=== PATIENT | male | born 1985 | race Asian ===

== ENCOUNTER 2024-09-08 10:59 | Emergency (ER) | payer MEDICAID, SELFPAY ==
[2024-09-08 11:03] VITALS: BP 144/86; PULSE 97; RESP 19; TEMP 36.7; O2SAT 98
--- NOTE | 2024-09-08 11:13 | EDNOTE_ITS ---
ED General RME/HPI General Chief complaint: Psychiatric Symptoms Stated complaint: CLEARANCE Time Seen by Provider: 09/08/24 11:11 Arrival date/time: 09/08/24 10:59 CC: 5150 Per PD patient was found walking in the streets against traffic. He officer states with patient has a known history with PD. Patient has a history of methamphetamine use family members are called states that he was seen hallucinating and walking into oncoming traffic. At the time of the exam the patient has no specific complaints and no pain, patient denies suicidal ideation or homicidal ideation. Related Data Previous Rx's ?Medication ?Instructions ?Recorded sulfamethoxazole 400 1 tab PO BID #20 tabs 05/07/23 mg-trimethoprim 80 mg tablet (Bactrim) Allergies Allergy/AdvReac Type Severity Reaction Status Date / Time No Known Allergies Allergy Verified 07/07/21 11:37 Review of Systems Review of Systems ROS Unobtainable: unobtainable due to mental status Past Medical History Past Medical History NEUROLOGIC: Negative Neurological Disorders CARDIAC: Negative Cardiac Disorders or Congestive Heart Failure RESPIRATORY: Negative Chronic Obstructive Pulmonary Disease (COPD) GASTROINTESTINAL: Negative Gastrointestinal Disorders GENITOURINARY: Negative Genitourinary Disorders or Renal Disease MUSCULOSKELETAL: Negative Musculoskeletal Disorders ENDOCRINE: Negative Endocrine Disorders, Diabetes Mellitus Type 1 or Diabetes Mellitus Type 2 HEMATOLOGIC: Negative Blood Disorders Family History FAMILY HISTORY: Negative Family Cardiac Disorders Surgical History SURGICAL: Negative Abdominal Surgery or Joint Replacement Social History SMOKING STATUS: Current every day smoker SUBSTANCE USE: crack/cocaine and methamphetamine ED Exam Narrative Physical exam: [General: Appears not in any acute distress Head normocephalic HEENT: Within acceptable limits Neck is supple nontender Chest equal chest rise nontender to palpation Respiratory: Clear to auscultation no wheezes crackles or rubs CV: Rate rhythm is regular no murmurs rubs or clicks Abdomen is soft nontender no masses positive bowel sounds all 4 quadrants Back: No CVA tenderness no spinous process tenderness from cervical spine thoracic and lumbar spine Skin: Intact no petechiae rash induration ulceration or crepitus Extremities: Moving all extremity against resistance cap refill less than 2 seconds neurosensory intact Neuro: Awake alert oriented x2, person and place, Glascow coma 15 no focal deficits] Course Course Course Narrative: Cleared for crisis Patient urinated on the floor is sleeping and on the floor picking at insulation on sink pipes. At this time the patient has not engaged with case management regarding suicidal evaluation. The patient will be held all night. At this point patient also has a potential to escalate to become a safety risk for staff members I am electing to give the patient Haldol Ativan and Benadryl. Quality Measures none Orders Category Date Time Status Diet Regular Diet 09/09/24 Lunch Active CBC Stat Lab 09/08/24 11:52 Completed CMP [Comprehensive Metabolic Panel] Stat Lab 09/08/24 11:52 Completed Drug Screen,Urine Stat Lab 09/08/24 12:30 Completed Urinalysis Stat Lab 09/08/24 12:30 Completed DiphenhydrAMINE INJ [Benadryl Inj] Med 09/08/24 17:33 Discontinued 50 mg IM X1 ONE Haloperidol Lactate [Haldol Inj] Med 09/08/24 17:33 Discontinued 5 mg IM X1 ONE LORazepam [Ativan Inj] Med 09/08/24 17:33 Discontinued 2 mg IM X1 ONE Late Tray Request Routine Oth 09/08/24 16:36 Active Vital Signs Vital signs: Vital Signs Temperature 98.1 F 09/08/24 11:03 Pulse Rate 97 09/08/24 11:03 Respiratory Rate 19 09/08/24 11:03 Blood Pressure 144/86 H 09/08/24 11:03 Pulse Oximetry (%) 98 09/08/24 11:03 Oxygen Delivery Method Room Air 09/08/24 11:03 [facility] Patient data External records reviewed:: [facility] previous records Clinical information provided by:: patient and law enforcement Social determinants that could affect healthcare access:: none Patient has the following chronic illnesses:: Methamphetamine abuse How is presenting disease/condition affected by chronic disease/condition?: e xacerbated by Evaluation data The following diagnostics were reviewed and interpreted by me:: lab results Lab and/or radiology exams considered but not ordered:: Urine is positive for methamphetamines CBC shows no acute leukocytosis anemia thrombocytopenia CMP shows no acute electrolyte imbalances renal impairment transaminitis or T. bili elevation. Interpretation Summary: Hallucinations Medications Medications considered but not ordered:: None Medication administrations:: Medication Administration History Discontinued Medications Diphenhydramine HCl (Diphenhydramine Inj 50 Mg/Ml Vial) 50 mg IM X1 ONE Stop: 09/08/24 17:34 Last Admin: 09/08/24 17:51 Dose: 50 mg Documented By: CS Haloperidol Lactate (Haloperidol Lact Inj 5 Mg/Ml Vial) 5 mg IM X1 ONE Stop: 09/08/24 17:34 Last Admin: 09/08/24 17:51 Dose: 5 mg Documented By: CS Lorazepam (Lorazepam 2 Mg/Ml Vial) 2 mg IM X1 ONE Stop: 09/08/24 17:34 Last Admin: 09/08/24 17:51 Dose: 2 mg Documented By: CS None Consultations Consultation(s) initiated? (list below): Yes Diagnosis Differential Diagnosis ED Complaint MDM: Suicidal ideation schizophrenia hallucinations substance abuse Most likely diagnosis given after review of the tests above:: Substance abuse hallucinations schizophrenia Admission Indicated Admission indicated?: indicated Explain why admission is indicated or not indicated:: Transfer Admission Request Was there a request for admission?: No Disposition Plan Disposition Plan: Transfer Medical Decision Making Differential Diagnosis Differential Diagnosis: Suicidal ideation schizophrenia hallucinations substance abuse Lab Data 09/08/24 11:52 09/08/24 11:52 Labs: Lab Results 09/08/24 09/08/24 Range/Units 11:52 12:30 WBC 5.9 (3.8-10.6) Thou/mm3 RBC 4.88 (4.50-5.90) Miln/mm3 Hgb 12.3 L (13.5-16.0) g/dL Hct 37.8 L (41.0-53.0) % MCV 78 L (80-100) fL MCH 25.2 (25.0-35.0) pg MCHC 32.5 (31.0-37.0) g/dl RDW Std Deviation 39.0 (35.1-43.9) fL Plt Count 238 (140-440) Thou/mm3 Neut % (Auto) 60 (37-80) % Lymph % (Auto) 21 (10-50) % [place] % (Auto) 12 (0-12) % Eos % (Auto) 7 (0-10) % Baso % (Auto) 1 (0-2.5) % Neut # (Auto) 3.5 (1.8-7.7) Thou/mm3 Lymph # (Auto) 1.2 (1.0-4.8) Thou/mm3 [place]kin # (Auto) 0.7 (0.0-0.8) Thou/mm3 Eos # (Auto) 0.4 (0.0-0.5) Thou/mm3 Baso # (Auto) 0.0 (0.0-0.2) Thou/mm3 Immature Gran # (Auto) 0.01 H (0.00-0.00) Thou/mm3 Absolute Nucleated RBC 0.00 (0.00-0.00) Thou/mm3 Immature Gran % 0 (0-0) % Nucleated RBC % 0 (0) /100 WBC Sodium 139 (136-145) mMol/L Potassium 3.6 (3.4-5.1) mMol/L Chloride 103 (98-107) mMol/L Carbon Dioxide 25.3 (20.0-31.0) mMol/L Anion Gap 11 (7-16) BUN 15 (9-23) mg/dL Creatinine 0.8 (0.6-1.3) mg/dL Estim Creat Clear Calc Not Performed. eGFR > 60 (60 - ) See Note BUN/Creatinine Ratio 19 (12-20) Ratio Glucose 93 (74-106) mg/dL Calculated Osmolality 278 (275-295) Calcium 9.3 (8.3-10.6) mg/dL Corrected Calcium 9.3 (8.5-10.1) mg/dL Total Bilirubin 0.6 (0.3-1.2) mg/dL AST 84 H (0-34) U/L ALT 93 H (10-49) U/L Alkaline Phosphatase 70 (46-116) U/L Total Protein 7.8 (5.7-8.2) gm/dL Albumin 5.0 (3.5-5.0) gm/dL Globulin 2.8 (2.3-3.5) gm/dL Albumin/Globulin Ratio 1.8 (1.2-2.2) Ur Collection Type Clean Catch Urine Color Yellow (Lt Yel-Yel) Urine Clarity Clear (Clear/Hazy) Urine pH 6.5 (5.0-7.0) Ur Specific [place] 1.028 (1.001-1.035) Urine Protein Trace (Neg - Trace) Urine Glucose (UA) Negative (Negative) Urine Ketones 2+ A (Negative) Urine Blood Trace (Negative) Urine Nitrite Negative (Negative) Urine Bilirubin Negative (Negative) Urine Urobilinogen (Auto) 2.0 (0.0-1.0) mg/dL Ur Leukocyte Esterase Negative (Negative) Urine RBC 4 H (0-3) /hpf Urine WBC 1 (0-5) /hpf Ur Squamous Epith Cells 0 (0-5) /hpf Urine Bacteria None (None) Urine Opiates Screen Negative (Negative) Urine Fentanyl Screen Negative (Negative) Ur Barbiturates Screen Negative (Negative) U Amphetamin/Meth Scrn Positive A (Negative) U Benzodiazepines Scrn Negative (Negative) U Cocaine Metab Screen Negative (Negative) U Marijuana (THC) Screen Negative (Negative) Discharge Plan Plan Patient Disposition: [facility] Prescriptions/Referrals Prescriptions/Med Rec: No Action sulfamethoxazole-trimethoprim [Bactrim] 400-80 mg tablet 1 tab PO BID Qty: 20 0RF Referrals: No Primary/Family,Physician [Primary Care Provider] - In 1 week Problem List Clinical Impression: Chronic schizophrenia, Drug-induced psychotic disorder Patient/Caregiver Discharge Instructions Print Language: Algerian Stand Alone Forms: Soraida Award Info., Patient Portal Info Letter PA/REM[place] Supervising Physician PA/CHANNEL DIRECTOR Supervising Physician: Shantanu Cai ENP
--- NOTE | 2024-09-08 11:22 | PC.CC ---
Pt Xavi Meyers is a 39 yr old male to ED on 5150 hold placed by [employer] for GD. From hold, law enforcement dispatched to pts residence for pt presenting with strange behavior. Pt walking into traffic, and being unaware of his surroundings. Pt was also breaking things in the home. At this time pt is pending medical clearance for evaluation.
[2024-09-08 12:23] LABS: Alanine Aminotransferase 93 U/L (10-49); Albumin/Globulin Ratio 1.8 (1.2-2.2); Alkaline Phosphatase 70 U/L (46-116); Anion Gap 11 (7-16); Aspartate Amino Transferase 84 U/L (0-34); BUN/Creatinine Ratio 19 Ratio (12-20); Bilirubin,Total 0.6 mg/dL (0.3-1.2); Blood Urea Nitrogen 15 mg/dL (9-23); Calcium 9.3 mg/dL (8.3-10.6); Calcium (Corrected) 9.3 mg/dL (8.5-10.1); Carbon Dioxide 25.3 mMol/L (20.0-31.0); Chloride 103 mMol/L (98-107); Creatinine (Component) 0.8 mg/dL (0.6-1.3); Globulin 2.8 gm/dL (2.3-3.5); Glucose 93 mg/dL (74-106); Osmolality,Calculated 278 (275-295); Potassium 3.6 mMol/L (3.4-5.1); Sodium 139 mMol/L (136-145); Total Protein 7.8 gm/dL (5.7-8.2); eGFR > 60 See Note
[2024-09-08 12:24] LABS: Basophils % (Auto) 1 % (0-2.5); Eosinophils # (Auto) 0.4 Thou/mm3 (0.0-0.5); Eosinophils % (Auto) 7 % (0-10); Hematocrit 37.8 % (41.0-53.0); Hemoglobin 12.3 g/dL (13.5-16.0); Immature Granulocytes % (Auto) 0 % (0-0); Immature Granulocytes Auto 0.01 Thou/mm3 (0.00-0.00); Lymphocytes # (Auto) 1.2 Thou/mm3 (1.0-4.8); Lymphocytes % (Auto) 21 % (10-50); Mean Corpuscular HGB Conc 32.5 g/dl (31.0-37.0); Mean Corpuscular Hemoglobin 25.2 pg (25.0-35.0); Mean Corpuscular Volume 78 fL (80-100); Monocytes # (Auto) 0.7 Thou/mm3 (0.0-0.8); Monocytes % (Auto) 12 % (0-12); Neutrophils # (Auto) 3.5 Thou/mm3 (1.8-7.7); Neutrophils % (Auto) 60 % (37-80); Nucleated Red Blood Cell % 0 /100 WBC (0); Platelet Count 238 Thou/mm3 (140-440); Red Blood Count 4.88 Miln/mm3 (4.50-5.90); White Blood Count 5.9 Thou/mm3 (3.8-10.6)
[2024-09-08 13:11] LABS: Collection Type, Urine Clean Catch; Squamous Epithelial Cell,Urine 0 /hpf (0-5)
--- NOTE | 2024-09-08 13:30 | PC.NURSE ---
Pt continues to remain restless. Remains by the door despite being asked multiple time to step away and/or go to the gurney. Pt periodically taking blanket to the wall as if he is using it to measure something. Pt had to be redirected and asked to leave the clock on the wall alone as he was seemingly attempting to remove it. Pt eventually stops after several verbal commands. Will continue to have a 1:1 sitter
[2024-09-08 13:36] LABS: Amphetamine/Methamp Scrn,U Positive (Negative); Barbiturate Screen,Urine Negative (Negative); Benzodiazepines Screen,Urine Negative (Negative); Benzoylecgonine Screen, Ur Negative (Negative); Fentanyl Screen,Urine Negative (Negative); Opiate Screen,Urine Negative (Negative); THC Screen,Urine Negative (Negative)
[2024-09-08 13:38] LABS: Bilirubin,Urine Negative (Negative); Blood,Urine Trace (Negative); Clarity,Urine Clear (Clear/Hazy); Color,Urine Yellow (Lt Yel-Yel); Glucose, Urine Negative (Negative); Ketones,Urine 2+ (Negative); Leukocyte Esterase,Urine Negative (Negative); Nitrite,Urine Negative (Negative); PH,Urine 6.5 (5.0-7.0); Protein,Urine Trace (Neg - Trace); RBC,Urine 4 /hpf (0-3); Specific Gravity,Urine 1.028 (1.001-1.035); WBC,Urine 1 /hpf (0-5)
--- NOTE | 2024-09-08 15:30 | PC.NURSE ---
Patient acting aggressively, forcing door open, rolling around on the floor in er room 18, pulling on sink pipe, security called to bedside.
[2024-09-08 16:04] VITALS: BP 151/82; PULSE 94; RESP 18; TEMP 36.6; O2SAT 99
--- NOTE | 2024-09-08 17:06 | PC.CC ---
Pt Xavi Meyers is a 39 yr old male to ED on 5150 hold placed by [employer] for GD. From hold local law enforcement called to pts residence by family due to pts bizarre behavior. From hold pt was breaking items in the home and running into oncoming traffic. Pts [place] screening is low risk with pt denying SI at this time. Pts toxicology positive for methamphetamine. From review of pts historical visits, pt placed on 5150 hold on 01/26/2020, with [facility] safety planning for pt to return home. While pt was pending medical clearance, pt noted to be actively engaging with stimuli, talking to himself. Pt sitting on floor, licking pudding out of cup. ASW met with pt at bedside, introducing self and role in pt care. ASW explained reason for encounter. At time of encounter pt is noted to be standing in corner of the room draped in blanket. Pt appears to be responding to stimuli, as evident that pt was speaking to himself. Pt provides minimal responses as to reason for coming to ED. Pt speaks in clear blunted tone. Pt fails to make eye contact with ASW for duration of encounter. Pt noted to be unkempt and malodorous. Pt telling ASW that he lives with his mom and that he has not slept in a few days. Pt asking ASW if ASW is a, ?jena doctor.? ASW attempted to assess for current SI/HI, A/VH. ASW attempted to assess for hx of MH, current dx. ASW attempted to assess if pt is prescribed MH medications and for compliance. ASW attempted to assess if pt is engaged in traditional MH services, and if pt has ever been hospitalized for MH reasons. Pt would not respond to any of these assessment questions. ASW attempted to assess pt regarding his substance use issues, again pt would not engage. ASW reviewed pts historical encounters to locate any contact information for pts family. 1418-ASW attempted to contact number for pt on his face sheet [phone], which is a non-working number. 1422-ASW spoke with [employer] Dispatcher Ambrosio, request to speak with Officer Álvaro for collateral information and contact information for family. ASW informed that [employer] is unable to provide contact information, but states that will reach out to pts mother to ask her to contact ASW. ASW provided direct contact information for call back. 1616-Case consult with EQUIPMENT SUPERINTENDENT Jennifer Sue, plan to re-evaluate in AM with attempt to collect collateral information (MH hx/dx etc). ED provider Cai and bedside RN Gayle updated on plan.
--- NOTE | 2024-09-08 17:35 | PC.NURSE ---
patient tied his underwear around his head, peeing on floor, rolling around in his urine, not able to re direct patient, uncooperative, called security to bedside and Shantanu INMAN made aware,
[2024-09-08] MEDS: DiphenhydrAMINE INJ 50 MG/ML VIAL IM (17:51)
[2024-09-08] MEDS: HALOPERIDOL LACT INJ 5 MG/ML VIAL IM (17:51)
[2024-09-08] MEDS: LORazepam 2 MG/ML VIAL IM (17:51)
--- NOTE | 2024-09-08 20:30 | PC.NURSE ---
IN TO ASSESS PT AT THIS TIME. PT ASLEEP ON GURNEY IN NO ACUTE DISTRESS. PT ELLIOTT HAVING AUDITORY OR VISUAL HALLUCINATIONS. PT DENIES SI/HI AT THIS TIME. SITTER IN PLACE.
--- NOTE | 2024-09-08 23:04 | EDNOTE_ITS ---
Emergency Room Addendum Addendum Narrative: 2300: Care assumed from Shantanu Cai NP. Past medical, surgical, social and family history reviewed. Vitals and home medications reviewed. Results and treatment plan discussed. I will assume the care of the patient at this time and will follow the patient, pending crisis evaluation. Please refer to the emergency department record for history and examination from initial visit. Patient was placed in observation for treatment and monitoring of psychiatric symptoms, at 2300 09/08/2024. Symptoms consist of suicidal ideation and depression. Treatment plan includes psychiatric consult, reassessments, and possible placement into psychiatric facility. The patient had access and provided personal hygiene, shower, food, water, and daily medications. 0600: Care signed out to Dr. Meneses (emergency physician). Past medical, surgical, social and family history reviewed. Vitals and home medications reviewed. Results and treatment plan discussed. They will assume the care of the patient at this time and will follow the patient, pending crisis evaluation. At this t pascual, observation has ended.
[2024-09-09 00:17] VITALS: BP 158/97; PULSE 95; RESP 19; O2SAT 97
[2024-09-09 06:32] VITALS: BP 151/98; PULSE 81; RESP 17; TEMP 36.8; O2SAT 98
--- NOTE | 2024-09-09 07:15 | PC.NURSE ---
Assume care for this Pt and got report from Joycelyn SALGADO. Pt is calm at this time, resting, easily arousable. 1 on 1 sitter in placed
--- NOTE | 2024-09-09 07:31 | PC.CC ---
Pt Xavi Meyers is a 39 yr old male to ED on 5150 hold placed by [employer] for GD. From hold law enforcement responded to community call by pts family due to bizarre behavior. From hold when [employer] responded pt was breaking things in the home, and was walking in and out of oncoming traffic. Pt has been medically cleared, and ASW attempted to assess, with pt unwilling/unable to engage. ASW contacted [employer] for collateral information and support in contacting pts family. ASW informed that [employer] would make contact with pts mom and have her call ED. ASW noted a missed call from pts mom Shazia Meyers [phone] at end of shift. ASW attempted to follow up and was unable to make contact. Plan for today is for ASW to attempt to reassess pt, and collect collateral information from pts family.
--- NOTE | 2024-09-09 08:08 | PD.EDADDENDU ---
Emergency Room Addendum Addendum Narrative: 0600: Care assumed by previous shift provider. Past medical, surgical, social and family history reviewed. Vitals and home medications reviewed. Results and treatment plan discussed. I will assume the care of the patient at this time and will follow the patient, pending final disposition. Patient had no behavioral issues during my encounter. 10:30 patient accepted to [facility] by Dr. Robin. Patient was transported in stable condition.
[2024-09-09 08:23] VITALS: BP 157/100; PULSE 67; RESP 17; TEMP 36.4; O2SAT 100
[2024-09-09 10:33] VITALS: BMI 24.2
--- NOTE | 2024-09-09 10:33 | PC.NURSE ---
Got a call from Yemi crowe and spoke to Barb whom i gave report too, Per Barb she report that she will call back if accepted
--- NOTE | 2024-09-09 10:41 | PC.NURSE ---
Got a call from [facility] who reported that they accepted this Pt and Dr. Santos is the accepting doctor.
[2024-09-09 11:01] VITALS: BP 166/75; PULSE 70; RESP 17; TEMP 36.9; O2SAT 99
--- NOTE | 2024-09-09 11:29 | PC.NURSE ---
Called Jean BANKS and I spoke to Freya RN who reports that she already got report from another nurse.
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
--- NOTE | 2024-09-09 12:36 | PC.CC ---
09-ASW made contact with [facility], pt has no open record for services. 937-Call to Pts sister Shazia. ASW provided update that pt will remain on 5150 hold, and is now pending placement in LPS facility. Clinical packet uploaded and faxed to the following [facility] facilities: [facility] 1050- Call to [facility], ASW spoke with Freya, pt accepted by Dr. Santos. Pt to go to 116A. Request transport ETA. Clinical packet created. PCS and face sheet uploaded to [employer]. 1100-Call to [facility], transport ETA for 1310. 1104-ASW followed up with [facility], with transport ETA. 1140-Call to pts sister with accepting information. ASW provided contact information for LPS facility.
== END 2024-09-09 11:26 ==
PROVIDERS: Registered Nurse General Practice; Emergency Provider Emergency Medicine
DX: Z04.6 Encounter for general psychiatric examination, requested by authority (principal); F15.159 Other stimulant abuse with stimulant-induced psychotic disorder, unspecified; F20.9 Schizophrenia, unspecified
CPT/HCPCS: 36415; 80053; 80307; 81001; 85025; 96127; 96372; 99285; J1200; J1630; J2060

== ENCOUNTER 2024-10-14 16:16 | Emergency (ER) | payer MEDICAID, SELFPAY ==
[2024-10-14 16:26] VITALS: BP 146/92; PULSE 105; RESP 18; TEMP 37.2; O2SAT 97
--- NOTE | 2024-10-14 16:28 | PD.EDWOUND ---
ED Wound/Laceration-RME/HPI General Stated Complaint: MEDICAL CLEARANCE Time Seen by Provider: 10/14/24 16:21 Arrival date/time: 10/14/24 16:16 39-year-old male presents to the emergency department for medical clearance for gross ration patient is laceration of the right elbow Limitations: no limitations Related Data Previous Rx's ?Medication ?Instructions ?Recorded sulfamethoxazole 400 1 tab PO BID #20 tabs 05/07/23 mg-trimethoprim 80 mg tablet (Bactrim) cephalexin 500 mg capsule 500 mg PO BID 7 days #14 caps 10/14/24 Allergies Allergy/AdvReac Type Severity Reaction Status Date / Time No Known Allergies Allergy Verified 07/07/21 11:37 Review of Systems Review of Systems Systems Reviewed: All systems reviewed, normal except as documented Constitutional Constitutional: Reports system reviewed and no additional complaints, except as documented, Denies fever(s) and Denies headache(s) Eyes Eyes: Reports system reviewed and no additional complaints, except as documented and Denies blurry vision ENT Ears, Nose, Mouth, and Throat: Reports system reviewed and no additional complaints, except as documented, Denies headache(s), Denies nasal congestion and Denies nasal discharge Cardiovascular Cardiovascular: Reports system reviewed and no additional complaints, except as documented, Denies chest pain and Denies dyspnea Respiratory Respiratory: Reports system reviewed and no additional complaints, except as documented, Denies chest congestion, Denies cough and Denies dyspnea Gastrointestinal Gastrointestinal: Reports system reviewed and no additional complaints, except as documented and Denies abdominal pain Integumentary/Breasts Skin/Breast: Reports system reviewed and no additional complaints, except as documented, Denies rash and Reports wounds (Laceration right elbow) Neurologic Neurologic: Reports system reviewed and no additional complaints, except as documented, Reports as per HPI and Denies headache(s) Past Medical History Past Medical History NEUROLOGIC: Negative Neurological Disorders CARDIAC: Negative Cardiac Disorders or Congestive Heart Failure RESPIRATORY: Negative Chronic Obstructive Pulmonary Disease (COPD) GASTROINTESTINAL: Negative Gastrointestinal Disorders GENITOURINARY: Negative Genitourinary Disorders or Renal Disease MUSCULOSKELETAL: Negative Musculoskeletal Disorders ENDOCRINE: Negative Endocrine Disorders, Diabetes Mellitus Type 1 or Diabetes Mellitus Type 2 HEMATOLOGIC: Negative Blood Disorders Family History FAMILY HISTORY: Negative Family Cardiac Disorders Surgical History SURGICAL: Negative Abdominal Surgery or Joint Replacement Social History SMOKING STATUS: Never smoker SUBSTANCE USE: crack/cocaine and methamphetamine ED Exam General Limitations: Present no limitations General appearance: Present alert and in no apparent distress Head Head exam: Present atraumatic, normocephalic and normal inspection Eye Eye exam: Present normal appearance, PERRL and EOMI; Absent conjunctival injection ENT ENT exam: Present normal exam, normal oropharynx and mucous membranes moist Neck Neck exam: Present normal inspection, full ROM and trachea midline Chest Chest inspection: Present normal inspection and symmetric chest wall rise Respiratory Respiratory exam: Present normal lung sounds bilaterally Cardiovascular Cardiovascular exam: Present regular rate, normal rhythm and normal heart sounds Abdominal Exam Abdominal exam: Present soft and normal bowel sounds Extremities Exam Extremities exam: Present normal inspection and full ROM Back Exam Back exam: Present normal inspection and full ROM Neurological Exam Neurological exam: Present alert, oriented X3 and CN II-XII intact Psychiatric Psychiatric exam: Present normal affect and normal mood Skin Skin exam: Present warm, dry and other (Laceration right elbow) Course Quality Measures none Orders Category Date Time Status Set Up Suture Tray STAT Care 10/14/24 16:28 Active Wound Care NOW Care 10/14/24 16:28 Active Lidocaine 1% 20 ml [Xylocaine 1% 20 ML] Med 10/14/24 16:28 Discontinued 20 ml INFL X1 ONE Tet,Diphth,Pertuss(Acell)-Tdap [Boostrix Vacc] Med 10/14/24 16:28 Discontinued 0.5 ml IMI .ONCE ONE Vital Signs Vital signs: Vital Signs Temperature 98.9 F 10/14/24 16:26 Pulse Rate 105 H 10/14/24 16:26 Respiratory Rate 18 10/14/24 16:26 Blood Pressure 146/92 H 10/14/24 16:26 Pulse Oximetry (%) 97 10/14/24 16:26 Oxygen Delivery Method Room Air 10/14/24 16:26 O2 saturation 97% room air within normal limits Procedures -ED Laceration Laceration 1: Site: upper extremity Side (If applicable): right Size (cm): 3 Description: linear Depth: simple, single layer Amount of anesthesia used (mL): 0 Pre-repair: irrigated extensively Skin layer closed with: nylon Size (cm): 3-0 Number of sutures: 2 Technique: simple, interrupted Wound / Laceration MDM Narrative MDM Narrative:: 39-year-old male presents to the emergency department for medical clearance for gross ration patient is laceration of the right elbow On exam patient has 2 cm laceration right elbow Wound irrigated copiously laceration repaired with 2 sutures Patient discharged to intermediate Antibiotic sent to the pharmacy Patient data External records reviewed:: [facility] previous records Clinical information provided by:: patient Social determinants that could affect healthcare access:: mental health Patient has the following chronic illnesses:: Mental health How is presenting disease/condition affected by chronic disease/condition?: no chronic disease Evaluation data The following diagnostics were reviewed and interpreted by me:: other (specify) (N/A) Lab and/or radiology exams considered but not ordered:: Consider not ordered Interpretation Summary: N/A Medications / Prescriptions Medications or Prescriptions considered but not ordered:: Given Medication administrations:: Medication Administration History Discontinued Medications Diphtheria/Tetanus/Acell Pertussis (Diphth,Pertuss(Acell),Tet Vac 0.5 Ml Vial) 0.5 ml IMi .ONCE ONE Stop: 10/14/24 16:29 Lidocaine HCl (Lidocaine Hcl 1% 20 Ml Vial) 20 ml INFL X1 ONE Stop: 10/14/24 16:29 Given Consultations Consultation(s) initiated? (list below): No Diagnosis Wound Differential Diagnosis: laceration, abrasion and avulsion of skin Most likely diagnosis given after review of the tests above:: Laceration medical clearance for incarceration Admission Indicated Admission indicated?: not indicated Admission Request Was there a request for admission?: No Disposition Plan Disposition Plan: Discharge Discharge Attestation Discharge Attestation: The patient and all family members were given an opportunity to ask questions and understood the discharge instructions. Discharge instructions specifically effects, indications for sooner follow up or return to the emergency department, and the expected course of current diagnosis. Patient condition: Stable Discharge Plan Plan Patient Disposition: Skilled Nursing/Court/Law Disposition Comment: Stable Prescriptions/Referrals Prescriptions/Med Rec: New cephalexin 500 mg capsule 500 mg PO BID 7 Days Qty: 14 0RF No Action sulfamethoxazole-trimethoprim [Bactrim] 400-80 mg tablet 1 tab PO BID Qty: 20 0RF Problem List Clinical Impression: Laceration of elbow, right, Medical clearance for incarceration Patient/Caregiver Discharge Instructions Education Materials: ED Scar Tips to Minimize Additional Instructions: Please follow up with your primary care doctor in the next 24-48hrs for any worsening symptoms return here immediately Please have sutures removed in 10 days Print Language: Turkish Stand Alone Forms: Soraida Award Info., Patient Portal Info Letter PA/SOCIAL SCIENCES RESEARCH SCIENTIST Supervising Physician PA/SOCIAL SCIENCES RESEARCH SCIENTIST Supervising Physician: Dr Meneses
== END 2024-10-14 16:55 ==
PROVIDERS: Emergency Provider Emergency Medicine
DX: Z02.89 Encounter for other administrative examinations (principal); S51.011A Laceration without foreign body of right elbow, initial encounter; X58.XXXA Exposure to other specified factors, initial encounter
CPT/HCPCS: 12001; 99283

== ENCOUNTER 2025-01-29 20:11 | Emergency (ER) | payer MEDICAID, SELFPAY ==
[2025-01-29 20:15] VITALS: BP 145/91; PULSE 95; RESP 18; TEMP 36.8; O2SAT 97
[2025-01-29 20:17] VITALS: BMI 21.5
--- NOTE | 2025-01-29 20:39 | PD.EDMEDCL ---
ED Medical Clearance RME/HPI General Chief complaint: Medical Clearance Stated complaint: MEDICAL CLEARANCE Source: patient Arrival date/time: 01/29/25 20:11 Mode of arrival: other (Police) RME / HPI RME / HPI Narrative: The patient does not want any treatment. At this time he does not want history and physical exam. DR. CARD?S MAIN ED EVALUATION: 39-year-old male with history of schizophrenia presenting to the emergency department via [facility] who is requesting medical clearance for incarceration. Patient denies any medical complaints and refuses and physical exam and medical history. - PMH: Schizophrenia - PSH: Denies - Social history:Crack/Cocaine, Methamphetamine - Current medications: Reviewed PCP is Unknown MD complaint: medical clearance requested Treatments Prior to Arrival: none Related Information Previous Rx's ?Medication ?Instructions ?Recorded sulfamethoxazole 400 1 tab PO BID #20 tabs 05/07/23 mg-trimethoprim 80 mg tablet (Bactrim) Allergies Allergy/AdvReac Type Severity Reaction Status Date / Time No Known Allergies Allergy Verified 01/29/25 20:43 Review of Systems Review of Systems ROS Unobtainable: other (Patient refused) Past Medical History Past Medical History PSYCHO/SOCIAL: Positive Schizophrenia and Recreational Drug Use (Crack/Cocaine, Methamphetamine) Social History SUBSTANCE USE: crack/cocaine and methamphetamine Course Quality Measures none Vital Signs Vital signs: Vital Signs Temperature 98.3 F 01/29/25 20:15 Pulse Rate 95 01/29/25 20:15 Respiratory Rate 18 01/29/25 20:15 Blood Pressure 145/91 H 01/29/25 20:15 Pulse Oximetry (%) 97 01/29/25 20:15 Oxygen Delivery Method Room Air 01/29/25 20:15 Medical Clearance MDM Narrative MDM Narrative:: Scribe Attestation: 01/29/2025 Elysia Parr am scribing for and in the presence of Dr. Card. Provider Notation: Although this document has been carefully reviewed, there may still be some phonetic and other typographical errors.? These errors are purely grammatical due to imperfections in the software program and should not be construed in any way to compromise the substance of the patient's medical care during this visit. 39-year-old male with history of schizophrenia presenting to the emergency department via [facility] who is requesting medical clearance for incarceration. Patient denies any medical complaints and refuses and physical exam and medical history. The patient does not want any history of physical exam findings. Patient is medically cleared and will be discharged to [facility] for incarceration. Patient data External records reviewed:: [facility] previous records (Reviewed prior ED records from 10/14/24. Patient was last seen for Laceration of elbow, right.) and Other (specify) ([facility]) Clinical information provided by:: patient, EMS and law enforcement ([facility]) Social determinants that could affect healthcare access:: none (History of fpc) Patient has the following chronic illnesses:: Schizophrenia, Substance abuse How is presenting disease/condition affected by chronic disease/condition?: uneffected by Evaluation data The following diagnostics were reviewed and interpreted by me:: other (specify) (N/A) Lab and/or radiology exams considered but not ordered:: N/A Interpretation Summary: N/A Medications / Prescriptions Medications or Prescriptions considered but not ordered:: N/A Medication administrations:: N/A Consultations Consultation(s) initiated? (list below): No Consultation #1 (Physician, Specialty, Details): N/A Diagnosis Medical Clearance Differential Diagnosis: other (N/A) Most likely diagnosis given after review of the tests above:: Medical Clearance for Incarceration Admission Indicated Admission indicated?: not indicated (Patient is going to [facility] medically cleared) Explain why admission is indicated or not indicated:: Patient is going to [facility] medically cleared Admission Request Was there a request for admission?: No Disposition Plan Disposition Plan: other (specify) (Medical clearance for [facility]. Patient refuses all treatment) Discharge Plan Plan Patient Disposition: Longterm/Court/Law Patient condition on transfer: Stable Prescriptions/Referrals Prescriptions/Med Rec: No Action sulfamethoxazole-trimethoprim [Bactrim] 400-80 mg tablet 1 tab PO BID Qty: 20 0RF Referrals: No Primary/Family,Physician [Primary Care Provider] - In 1 week Problem List Clinical Impression: Medical clearance for incarceration Patient/Caregiver Discharge Instructions Additional Instructions: Patient is medically cleared for incarceration. At this time he does not want any treatment. Please return to the emergency department if you have any questions, concerns, you want any treatment, or any other concerns. DISCHARGE INSTRUCTIONS Even though you have been discharged from the Emergency Department, there are several things that you should do to ensure that you receive proper care: 1. DO READ your discharge instructions as these contain important information concerning your medical care. 2. If medication has been prescribed for your condition, fill the prescription as soon as possible and follow the directions on the medication. 3. RETURN AT ONCE TO THE EMERGENCY DEPARTMENT if you have any problems or concerns. These include but are not limited to fever, worsening pain(belly, chest, head, etc?), worsening shortness of breath, uncontrollable bleeding, inability to tolerate food and water, or any condition that makes you question your well-being. Also, if your symptoms do not improve in the next 12-24 hours, return to the ER or seek medical care immediately. 4. Be sure to follow up with your regular physician or specialist as instructed at discharge as this is the best way to ensure that you receive the very best of care. If you do not have a primary care physician, please contact a physician group and make an appointment. 5. Please visit [employer] for coupons regarding your prescriptions. It is a free service for you to use and can help reduce the cost of your medication. We would like to thank you for coming today and our hope is that we served you and your family well during your stay Print Language: Sudanese
== END 2025-01-29 20:48 ==
PROVIDERS: Emergency Provider Emergency Medicine
DX: Z02.89 Encounter for other administrative examinations (principal); F20.9 Schizophrenia, unspecified
CPT/HCPCS: 99281

== ENCOUNTER 2025-08-25 04:41 | Emergency (ER) | payer SELFPAY ==
[2025-08-25] VITALS (8 sets, daily range): BP systolic 131–157; BP diastolic 67–101; PULSE 71–97; RESP 16–22; TEMP 36.4–37.1; O2SAT 96–100; BMI 22.6
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
[2025-08-25] MEDS: DIPHTH,PERTUSS(ACELL),TET VAC 0.5 ML SYR- ADULT IMi (05:53)
[2025-08-25 06:13] LABS: Basophils # (Auto) 0.0 Thou/mm3 (0.0-0.2); Basophils % (Auto) 0 % (0-2.5); Eosinophils # (Auto) 0.2 Thou/mm3 (0.0-0.5); Eosinophils % (Auto) 3 % (0-10); Hematocrit 40.0 % (41.0-53.0); Hemoglobin 12.7 g/dL (13.5-16.0); Immature Granulocytes Auto 0.01 Thou/mm3 (0.00-0.00); Lymphocytes # (Auto) 0.7 Thou/mm3 (1.0-4.8); Lymphocytes % (Auto) 13 % (10-50); Mean Corpuscular HGB Conc 31.8 g/dl (31.0-37.0); Mean Corpuscular Hemoglobin 25.2 pg (25.0-35.0); Mean Corpuscular Volume 80 fL (80-100); Monocytes # (Auto) 0.8 Thou/mm3 (0.0-0.8); Monocytes % (Auto) 15 % (0-12); Neutrophils # (Auto) 3.9 Thou/mm3 (1.8-7.7); Neutrophils % (Auto) 68 % (37-80); Nucleated Red Blood Cell # 0.00 Thou/mm3 (0.00-0.00); Nucleated Red Blood Cell % 0 /100 WBC (0); Platelet Count 266 Thou/mm3 (140-440); RDW Standard Deviation 40.5 fL (35.1-43.9); Red Blood Count 5.03 Miln/mm3 (4.50-5.90); White Blood Count 5.7 Thou/mm3 (3.8-10.6)
[2025-08-25 06:29] LABS: INR 1.0 (0.9-1.3); Prothrombin Time 10.9 Seconds (9.0-12.2)
[2025-08-25 07:18] LABS: Alanine Aminotransferase 46 U/L (10-49); Albumin, Serum 4.3 gm/dL (3.5-5.0); Albumin/Globulin Ratio 1.6 (1.2-2.2); Alcohol, Blood Medical < 3.0 mg/dL (0-10.0); Alkaline Phosphatase 69 U/L (46-116); Anion Gap 12 (7-16); Aspartate Amino Transferase 45 U/L (0-34); BUN/Creatinine Ratio 21 Ratio (12-20); Bilirubin,Total 0.5 mg/dL (0.3-1.2); Blood Urea Nitrogen 19 mg/dL (9-23); Calcium 8.7 mg/dL (8.3-10.6); Calcium (Corrected) 8.7 mg/dL (8.5-10.1); Carbon Dioxide 26.1 mMol/L (20.0-31.0); Chloride 104 mMol/L (98-107); Creatinine (Component) 0.9 mg/dL (0.6-1.3); Estimated Creatinine Clearance 103.5 mL/min (>60); Globulin 2.7 gm/dL (2.3-3.5); Glucose 147 mg/dL (74-106); Osmolality,Calculated 288 (275-295); Potassium 3.9 mMol/L (3.4-5.1); Sodium 142 mMol/L (136-145); Total Protein 7.0 gm/dL (5.7-8.2); eGFR > 60 See Note
--- NOTE | 2025-08-25 07:23 | EDNOTE_ITS ---
Emergency Room Addendum Addendum Narrative: 0600: Care assumed from Dr. Angelo, the previous shift emergency physician. Past medical, surgical, social and family history reviewed. Vitals and home medications reviewed. I will assume the care of the patient at this time, pending xray's, CTs, and medical clearance for mental health evaluation. Please refer to the emergency department record for history and examination from initial visit.?The following addendum documentation note is intended to reflect any pending information, findings, or radiology results not included in the patient?s initial chart. 0725a: Patient is becoming agitated though somewhat redirectable. At this time patient is refusing Xrays and CTs. Patient has agreed to CTs though still refusing XR. 1030a: Patient is refusing XR of the foot though at this time is considered medically cleared. 1110a: Notified by our social sciences research scientist the patient has been placed on a 5150 hold and at this time pending LPS facility placement. 1645p: Notified by RN that the LPS facility that is willing to accept the patient is requesting XR of left leg prior to acceptance. Imaging has been ordered and patient is agreeable to having the images performed. The left tibia/fibula xray is negative for fractures. The left knee xray is negative for fractures. The left foot xray is positive for second and third metatarsal fractures. Patient will be placed in an orthopedic boot and can follow up with orthopedics on an outpatient basis. 1800p: Care signed out to Dr. Angelo pending LPS facility placement.
--- NOTE | 2025-08-25 08:23 | PC.NURSE ---
patient refusing to answer any further questions at this time encourgaed patient to pee was not able to get any urine. patient also refusing xray MD wrightomed
--- NOTE | 2025-08-25 10:29 | PC.NURSE ---
patient refusing in and out catheter
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
--- NOTE | 2025-08-25 13:34 | PC.NURSE ---
patient refusing blood draws
--- NOTE | 2025-08-25 13:41 | PC.NURSE ---
patient refusing xray, blood draws, in and out catheter informed charge nurse as well as
--- NOTE | 2025-08-25 14:29 | PC.SS ---
Addendum entered by Betsy Holguin 08/26/25 09:55: SS follow up note; ETA is 10:30AM. SS updated staff at [facility]. Addendum entered by Betsy Holguin 08/26/25 09:25: SS was contacted by Malinda from [facility], giving acceptance. Dr. Alvarez is the accepting DR. Arrival time 10AM. [facility], Nurse to Nurse Contact number is [phone]. SS contacted [facility] to set up transportation for 1030AM. SS will update patient and patients nurseMery. Original Note: SS follow up note; SS sent out referral to all [facility] facilities.
--- NOTE | 2025-08-25 15:17 | PC.NURSE ---
YARIEL FROM [facility] CALLING TO SPEAK WITH DAMIAN DORAN AT THIS TIME
--- NOTE | 2025-08-25 15:54 | PC.NURSE ---
GAVI TOPETE CALLING TO SPEAK WITH RN REGARDING PT INFO AT THIS TIME
--- NOTE | 2025-08-25 16:00 | PC.NURSE ---
NANCY FROM [facility] CALLED. REPORT GIVEN. STATES SHE WILL SPEAK WITH HER MD AND CALL US BACK IF THEY ARE ABLE TO ACCEPT
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
[2025-08-25 17:27] LABS: Amphetamine/Methamp Scrn,U Positive (Negative); Barbiturate Screen,Urine Negative (Negative); Benzodiazepines Screen,Urine Negative (Negative); Benzoylecgonine Screen, Ur Negative (Negative); Fentanyl Screen,Urine Negative (Negative); Opiate Screen,Urine Negative (Negative); THC Screen,Urine Negative (Negative)
--- NOTE | 2025-08-25 18:20 | EDNOTE_ITS ---
Emergency Room Addendum Addendum Narrative: 1800: Care assumed from Dr. Rojas, the previous shift emergency physician. Past medical, surgical, social and family history reviewed. Vitals and home medications reviewed. Results and treatment plan discussed. I will assume the care of the patient at this time and will follow the patient. Please refer to the emergency department record for history and examination from initial visit. Patient was placed in observation for treatment and monitoring of psychiatric symptoms, at 1800 08/25/2025. Symptoms consist of danger to self. Treatment plan includes psychiatric consult, reassessments, and possible placement into psychiatric facility. The patient had access and provided personal hygiene, shower, food, water, and daily medications. Patient remained stable while under my care. 0600: Care signed out to Dr. Rojas (emergency physician). Past medical, kriss gical, social and family history reviewed. Vitals and home medications reviewed. Results and treatment plan discussed. They will assume the care of the patient at this time and will follow the patient, pending psychiatric placement. At this time, observation has ended.
--- NOTE | 2025-08-25 21:30 | PC.NURSE ---
PT AWAKE AND CALM ANSWERING QUESTIONS APPROPRIATELY. PT PROVIDED WITH BOOT TO LEFT FOOT. PT GIVEN NOURISHMENT. DENIES ANY SI/HI. SITTER WATCHING PT.
[2025-08-26 06:14] VITALS: PULSE 78; RESP 18; TEMP 37; O2SAT 98
--- NOTE | 2025-08-26 07:15 | PC.NURSE ---
SS WORKERS AT BEDSIDE FOR EVAL.
--- NOTE | 2025-08-26 07:15 | PC.NURSE ---
In to assess pt. Pt resting quietly at this time without any complaints. Pt is alert, oriented, cooperative, and answering questions appropriately. V/S assessed and stable. Plan of care ongoing.
--- NOTE | 2025-08-26 07:20 | PC.NURSE ---
Called Staffing office for sitter, non available, called security to sit, spoke with Demetris states he will inform his coal and ash supervisor and attempt to call somone in. Kadi MONROY monitoring patient till security available
--- NOTE | 2025-08-26 07:55 | PD.EDADDENDU ---
Emergency Room Addendum Addendum Narrative: 0600: Care assumed from Dr. Angelo, the previous shift emergency physician. Past medical, surgical, social and family history reviewed. Vitals and home medications reviewed. I will assume the care of the patient at this time, pending LPS facility placement. Please refer to the emergency department record for history and examination from initial visit.?The following addendum documentation note is intended to reflect any pending information, findings, or radiology results not included in the patient?s initial chart. Patient has been accepted for transfer by Dr. Romero at [facility]. 1038: EMS here to transfer the patient. Patient has remained stable during my watch.
--- NOTE | 2025-08-26 08:30 | PC.NURSE ---
breakfast tray provided.
--- NOTE | 2025-08-26 10:30 | PC.NURSE ---
Report called to [facility]. Pt picked up for transfer by [facility].
== END 2025-08-26 10:39 ==
PROVIDERS: Emergency Medicine; Emergency Provider Emergency Medicine
DX: S01.81XA Laceration without foreign body of other part of head, initial encounter (principal); S60.511A Abrasion of right hand, initial encounter; S92.322A Displaced fracture of second metatarsal bone, left foot, initial encounter for closed fracture; S92.332A Displaced fracture of third metatarsal bone, left foot, initial encounter for closed fracture; S29.9XXA Unspecified injury of thorax, initial encounter; S09.90XA Unspecified injury of head, initial encounter; S89.92XA Unspecified injury of left lower leg, initial encounter; F23 Brief psychotic disorder; R45.1 Restlessness and agitation; M54.2 Cervicalgia; V03.00XA Pedestrian on foot injured in collision with car, pick-up truck or van in nontraffic accident, initial encounter; Y93.01 Activity, walking, marching and hiking; Y92.411 Interstate highway as the place of occurrence of the external cause; Z23 Encounter for immunization; Z75.1 Person awaiting admission to adequate facility elsewhere
CPT/HCPCS: 12011; 36415; 70450; 71045; 72125; 73130; 73560; 73590; 73630; 80053; 80307; 80320; 85025; 85610; 90471; 90715; 99285; G0480

== ENCOUNTER 2025-09-04 15:02 | Emergency (ER) | payer MEDICAID, SELFPAY ==
[2025-09-04 15:18] VITALS: BP 140/78; PULSE 99; RESP 19; O2SAT 99
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
--- NOTE | 2025-09-04 15:25 | XR_ITS ---
Examination: Duplex scan of the lower extremity, unilateral left Date and time of exam: September 04, 2025, 1544 hours INDICATIONS: Leg swelling and pain this week Technique: Duplex scan of the extremity veins using B-mode/grayscale imaging and Doppler spectral analysis and color flow Attention is directed to internal echogenicity, compression and augmentation involving these veins, color flow assessment, spectral analysis Findings: Major deep venous structures in the extremity demonstrate normal course and caliber. There is no evidence of deep vein thrombosis. Normal color flow and spectral analysis Popliteal cyst 6.2 cm Impression: Negative for DVT..
[2025-09-04 16:19] VITALS: BMI 26.9
[2025-09-04 16:25] LABS: Lactate (Lactic Acid) 2.1 mMol/L (0.4-2.0)
[2025-09-04 16:29] LABS: Basophils # (Auto) 0.0 Thou/mm3 (0.0-0.2); Basophils % (Auto) 0 % (0-2.5); Eosinophils # (Auto) 0.0 Thou/mm3 (0.0-0.5); Eosinophils % (Auto) 0 % (0-10); Hematocrit 36.4 % (41.0-53.0); Hemoglobin 11.5 g/dL (13.5-16.0); Immature Granulocytes Auto 0.07 Thou/mm3 (0.00-0.00); Lymphocytes # (Auto) 0.4 Thou/mm3 (1.0-4.8); Lymphocytes % (Auto) 3 % (10-50); Mean Corpuscular HGB Conc 31.6 g/dl (31.0-37.0); Mean Corpuscular Hemoglobin 25.1 pg (25.0-35.0); Mean Corpuscular Volume 79 fL (80-100); Monocytes # (Auto) 1.0 Thou/mm3 (0.0-0.8); Monocytes % (Auto) 6 % (0-12); Neutrophils # (Auto) 14.6 Thou/mm3 (1.8-7.7); Neutrophils % (Auto) 91 % (37-80); Nucleated Red Blood Cell # 0.00 Thou/mm3 (0.00-0.00); Nucleated Red Blood Cell % 0 /100 WBC (0); Platelet Count 274 Thou/mm3 (140-440); RDW Standard Deviation 41.2 fL (35.1-43.9); Red Blood Count 4.59 Miln/mm3 (4.50-5.90); White Blood Count 16.0 Thou/mm3 (3.8-10.6)
[2025-09-04 16:35] VITALS: TEMP 37.3
[2025-09-04 16:39] LABS: INR 1.1 (0.9-1.3); Prothrombin Time 11.2 Seconds (9.0-12.2)
--- NOTE | 2025-09-04 16:46 | PC.NURSE ---
PATIENT REFUSED IV INSERTION AT THIS TIME. PER PATIENT, ALL I NEED TO DO IS SLEEP AND EAT. RN INFORMED PA OF PATIENT REFUSAL, NO FURTHER ORDERS AT THIS TIME.
[2025-09-04 16:54] LABS: Alanine Aminotransferase 33 U/L (10-49); Albumin, Serum 4.4 gm/dL (3.5-5.0); Albumin/Globulin Ratio 1.6 (1.2-2.2); Alcohol, Blood Medical < 3.0 mg/dL (0-10.0); Alkaline Phosphatase 72 U/L (46-116); Anion Gap 13 (7-16); Aspartate Amino Transferase 40 U/L (0-34); BUN/Creatinine Ratio 14 Ratio (12-20); Bilirubin,Total 0.7 mg/dL (0.3-1.2); Blood Urea Nitrogen 14 mg/dL (9-23); C-Reactive Protein 6.5 mg/dL (0.0-0.9); Calcium 8.6 mg/dL (8.3-10.6); Calcium (Corrected) 8.6 mg/dL (8.5-10.1); Carbon Dioxide 24.5 mMol/L (20.0-31.0); Chloride 101 mMol/L (98-107); Creatinine (Component) 1.0 mg/dL (0.6-1.3); Estimated Creatinine Clearance 93.6 mL/min (>60); Globulin 2.8 gm/dL (2.3-3.5); Glucose 118 mg/dL (74-106); Osmolality,Calculated 277 (275-295); Potassium 3.9 mMol/L (3.4-5.1); Procalcitonin 0.57 ng/ml (0.0-0.49); Sodium 138 mMol/L (136-145); Total Protein 7.2 gm/dL (5.7-8.2); eGFR > 60 See Note
[2025-09-04 17:09] LABS: Sed Rate (ESR) 50 mm/hr (0-15)
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
[2025-09-04 19:23] LABS: Reflex Lactate? Y
[2025-09-04 19:44] LABS: Lactic Acid, 3 HR 1.1 mMol/L (0.4-2.0)
== END 2025-09-04 20:24 | disposition home or self-care (01) ==
PROVIDERS: Nurse Practitioner Primary Care; Emergency Provider Family Medicine
DX: S62.321A Displaced fracture of shaft of second metacarpal bone, left hand, initial encounter for closed fracture (principal); S62.323A Displaced fracture of shaft of third metacarpal bone, left hand, initial encounter for closed fracture; S79.912A Unspecified injury of left hip, initial encounter; S89.92XA Unspecified injury of left lower leg, initial encounter; V03.90XA Pedestrian on foot injured in collision with car, pick-up truck or van, unspecified whether traffic or nontraffic accident, initial encounter; Y92.410 Unspecified street and highway as the place of occurrence of the external cause
CPT/HCPCS: 36415; 73502; 73552; 73562; 73590; 73630; 80053; 80307; 80320; 83605; 84145; 85025; 85610; 85652; 86140; 87040; 93971; 99283; G0480

== ENCOUNTER 2025-09-07 23:56 | Emergency (ER) | payer MEDICAID, SELFPAY ==
[2025-09-07 23:58] VITALS: BP 144/69; PULSE 164; RESP 19; TEMP 37.1; O2SAT 98
[2025-09-08] VITALS (14 sets, daily range): BP systolic 114–171; BP diastolic 63–95; PULSE 83–130; RESP 16–25; TEMP 37.1–39.4; O2SAT 96–100; BMI 24.3
--- NOTE | 2025-09-08 00:50 | PD.EDSKIN ---
ED Skin Abcess FB-RME/HPI General Chief complaint: Extremity Problem,Nontraumatic Stated complaint: LEG PAIN AND SWELLING Time Seen by Provider: 09/08/25 00:21 Arrival date/time: 09/07/25 23:56 RME / HPI RME / HPI narrative: DR. SIERRA MAIN ED EVALUATION: Patient with Hx schizophrenia off meds and is homeless has sustained fracture to left foot and has been noncompliant regarding treatment. Patient seen on 09/04/25, prescribed Bactrim for suspected cellulitis and referred to [facility]. Patient was unable to follow through with visit and is now presenting with increasing pain and swelling to foot/ankle in addition to painful weight-bearing. PMH: Schizophrenia, Recreational Drug use PSH: Non-contributory Allergies: NKDA Social: Methamphetamine, Marijuana Related Data Previous Rx's ?Medication ?Instructions ?Recorded sulfamethoxazole 400 1 tab PO BID #20 tabs 05/07/23 mg-trimethoprim 80 mg tablet (Bactrim) acetaminophen 500 mg tablet 500 mg PO Q4H PRN fever or pain 09/04/25 (Tylenol Extra Strength) #30 tabs ibuprofen 800 mg tablet (IBU) 800 mg PO Q8H PRN pain #20 tabs 09/04/25 sulfamethoxazole 800 1 tab PO BID 10 days #20 tabs 09/04/25 mg-trimethoprim 160 mg tablet (Bactrim DS) Allergies Allergy/AdvReac Type Severity Reaction Status Date / Time No Known Allergies Allergy Verified 09/04/25 17:05 Review of Systems Review of Systems Systems Reviewed: All systems reviewed, normal except as documented Past Medical History Past Medical History PSYCHO/SOCIAL: Positive Schizophrenia and Recreational Drug Use Social History SUBSTANCE USE: crack/cocaine and methamphetamine ED Exam Narrative Physical exam: GEN. APPEARANCE: The patient is alert awake oriented X-3 under no distress, lying down comfortably, does not look ill/toxic. Fragmented speech, loosens of association and asking of 5150 hold. Notably febrile, tachycardic. VITALS: All vitals were reviewed and the pulse ox is 100%, which is normal according to my interpretation HEENT: Normocephalic, atraumatic and nontender. Pupils are equal and reactive. Oral mucosa is moist. NECK: Supple, nontender, no meningismus, no JVD. There is no thyromegaly and no lymphadenopathy. CHEST: Nontender on palpation no deformity and no crepitus. CARDIOVASCULAR: Tachycardic, no murmur or gallop rub or extra beats. LUNGS: Clear to auscultation bilaterally with symmetrical chest rise. No laboring tachypnea or wheezing. No intercostal subcostal retraction. No rales and no rhonchi. ABDOMEN: Soft, flat, nontender to palpation, no guarding or rebound tenderness. There are no abnormal masses palpated. No pulsatile masses or bruits. Active and normal bowel sounds. EXTREMITIES: LLE circumferential edema with diffuse tenderness of the dorsal aspect of mid metatarsal. From ankle to distal thight, there is 2+ circumferential edema, erythema, and induration with large patch of denuded skin along posterior aspect of the left proximal leg and distal thigh. Distal pulses palpable, motor strength intact induration extends to mid thigh. SKIN: Warm and dry, no rashes noted. MUSCULOSKELETAL: No lumbar or midline bony tenderness. There is no CVA tenderness. No paraspinal muscle spasm or tenderness. NEURO: Cranial nerves II through XII grossly intact. There are no focal neurologic deficits noted. GCS is 15 PSYCHIATRIC: Fragmented speech, loosens of association and asking of 5150 hold. LYMPHATICS: No major lymphadenopathy noted. Course Course Course Narrative: Sepsis alert initiated. Orders made at this time are congruent with ED Adult Sepsis Order List. Re-evaluation is to be completed. 0500: Care assumed by Dr. Shannon (emergency physician). Past medical, surgical, social and family history reviewed. Vitals and home medications reviewed. Results and treatment plan discussed. They will assume the care of the patient at this time and will follow the patient, pending CT and final disposition. Quality Measures Current suspected stage: sepsis Possible source: skin/soft tissue and wound Blood cultures ordered: yes Antibiotic ordered: Yes Pertinent labs: 09/08/25 09/08/25 01:30 05:37 Lactic Acid 3.1 H mMol/L 2.7 H mMol/L (0.4-2.0) (0.4-2.0) Procalcitonin 35.61 H ng/ml (0.0-0.49) sepsis Orders Category Date Time Status CT Screening NOW Care 09/08/25 01:26 Active Baggage Clerk STAT Care 09/08/25 01:23 Active Continuous Pulse Oximetry STAT Care 09/08/25 01:23 Completed EKG (ED ONLY) *Do not use* NOW Care 09/08/25 01:13 Completed EKG (ED ONLY) *Do not use* NOW Care 09/08/25 01:23 Completed In and Out Catheter X1PRN Care 09/08/25 01:23 Completed Insert IV NOW Care 09/08/25 01:13 Active Insert IV NOW Care 09/08/25 01:23 Completed NPO STAT Care 09/08/25 01:23 Active Strict Intake and Output Routine Care 09/08/25 01:23 Ordered Consult to General Surgery Stat Cons 09/08/25 08:02 Ordered Referral - Wood Room Supervisor Stat Cons 09/08/25 13:[address] angio LE LT Stat Exams 09/08/25 01:23 Completed EKG (ED Only) Stat Exams 09/08/25 01:13 Ordered EKG (ED Only) Stat Exams 09/08/25 01:23 Ordered US venous doppler LE LT Stat Exams 09/08/25 04:32 Completed XR foot AP & LAT LTD LT 2V Stat Exams 09/08/25 01:31 Completed Acetaminophen Stat Lab 09/08/25 01:30 Completed Alcohol, Blood Medical Stat Lab 09/08/25 01:30 Completed Alcohol, Urine Stat Lab 09/08/25 02:03 Completed B-Type Natriuretic Peptide Stat Lab 09/08/25 01:30 Completed Blood Culture (Lab) Stat Lab 09/08/25 01:35 Received CBC Stat Lab 09/08/25 01:30 Completed Comprehensive Metabolic Panel Stat Lab 09/08/25 01:30 Completed Drug Screen,Urine Stat Lab 09/08/25 02:03 Completed ESR [Sed Rate (ESR)] Stat Lab 09/08/25 01:30 Completed Lactate (Lactic Acid) Stat Lab 09/08/25 01:30 Completed Lactic Acid, 3 HR Stat Lab 09/08/25 05:37 Completed Magnesium Stat Lab 09/08/25 01:30 Completed Partial Thromboplastin Time Stat Lab 09/08/25 01:30 Completed Phosphorous Stat Lab 09/08/25 01:30 Completed Procalcitonin Stat Lab 09/08/25 01:30 Completed Prothrombin Time with INR Stat Lab 09/08/25 01:30 Completed Salicylate Stat Lab 09/08/25 01:30 Completed Troponin I Stat Lab 09/08/25 01:30 Completed Urinalysis, C/S if Indicated Stat Lab 09/08/25 02:03 Completed Vancomycin,Trough Stat Lab 09/09/25 09:00 Ordered Wound Cult and GS, Anaer Stat Lab 09/08/25 03:24 Results Acetaminophen Khushboo [Tylenol Khushboo] Med 09/08/25 01:23 Active 1,000 mg PO Q8H PRN Ondansetron Inj [Zofran Inj] Med 09/08/25 01:23 Active 4 mg IVP Q6HR PRN Piper/Tazo 3.375 gm Premix [Zosyn] Med 09/08/25 01:23 Discontinued 3.375 gm in 50 ml IV X1 Piper/Tazo 3.375 gm Premix [Zosyn] Med 09/08/25 13:25 Discontinued 3.375 gm in 50 ml IV X1 Sodium Chloride 0.9% 1000 ml [Ns] 2,052 ml Med 09/08/25 01:23 Discontinued IV 2,052 mls/hr Vancomycin Inj 1,000 mg Med 09/08/25 01:45 Discontinued Sodium Chloride 0.9% 250 ml [Ns] 250 ml IV X1 Vancomycin Pharmacy to Dose Med 09/08/25 09:00 Active 1 each IV QDAY PRN Vancomycin/Ns 1 gm Ivpb 200 ml Med 09/08/25 11:00 Discontinued IV X1 Oxygen Delivery NOW RT 09/08/25 01:23 Active Vital Signs Vital signs: Vital Signs Temperature 98.7 F 09/07/25 23:58 Pulse Rate 164 H 09/07/25 23:58 Respiratory Rate 19 09/07/25 23:58 Blood Pressure 144/69 H 09/07/25 23:58 Pulse Oximetry (%) 98 09/07/25 23:58 Oxygen Delivery Method Room Air 09/07/25 23:58 Skin / Abscess / Foreign Body MDM Narrative MDM Narrative:: Scribe Attestation: Elysia Morelos, jose luis scribing for and in the presence of Dr. Sierra. Provider Notation: Although this document has been carefully reviewed, there may still be some phonetic and other typographical errors. These errors are purely grammatical due to imperfections in the software program and should not be construed in any way to compromise the substance of the patient's medical care during this visit. Patient with Hx schizophrenia off meds and is homeless has sustained fracture to left foot and has been noncompliant regarding treatment. Patient seen on 09/04/25, prescribed Bactrim for suspected cellulitis and referred to [facility]. Please see PE findings. Laboratory markers, including CBC and serum chemistries, demonstrated elevated WBC of 14.2 stable Hgb of 11.7, and elevated platelet count with left shift but no bandemia. Serum chemistries demonstrated BUN of 39, suggestive of underlying dehydration, otherwise essentially unremarkable. UA without evidence of infection. X-rays of left foot with minimally displaced 2-3 metatarsal fractures. patient markedly tachy upon present and entered into sepsis pathway. After appropriate cultures obtained, administered imperic ABX Patient to undergo CTA of LE results of which are currently pending, in addition to a doppler US. 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 Please see AM physician's note for final diagnosis and disposition. Patient data External records reviewed:: [facility] previous records (Reviewed prior ED records from 09/04/25. Patient was seen for Foot fracture.) and EMS form Clinical information provided by:: patient and EMS Social determinants that could affect healthcare access:: substance use (Methamphetamine, Marijuana) Patient has the following chronic illnesses:: Schizophrenia, Recreational Drug use How is presenting disease/condition affected by chronic disease/condition?: exacerbated by Evaluation data The following diagnostics were reviewed and interpreted by me:: lab results, radiology exam(s) and EKG tracing(s) (EKG shows normal sinus tachycardia at 122, normal axis, no ventricular ectopy, no signs of acute ischemia, per my interpretation.) Lab and/or radiology exams considered but not ordered:: None Interpretation Summary: RADIOLOGY Foot X-Ray: Pending official radiology report. LE CTA: Pending official radiology report. Medications / Prescriptions Medications or Prescriptions considered but not ordered:: None Medication administrations:: Medication Administration History Acetaminophen (Acetaminophen Khushboo 325 Mg/10 Ml Udc) 1,000 mg PO Q8H PRN PRN Reason: Fever > 100.4 Stop: 10/08/25 01:22 Last Admin: 09/08/25 20:26 Dose: 1,000 mg Documented By: Admin: 09/08/25 01:42 Dose: 1,000 mg Documented By: LUDMILA Ondansetron HCl (Ondansetron Inj 2 Mg/Ml Inj 2 Ml) 4 mg IVP Q6HR PRN PRN Reason: NAUSEA OR VOMITING Stop: 10/08/25 01:22 Pharmacy Consult (Vancomycin Pharmacy To Dose 1 Each Each) 1 each IV QDAY PRN PRN Reason: CONSULT Stop: 10/08/25 08:59 Discontinued Medications Sodium Chloride (Ns) 2,052 mls @ 2,052 mls/hr 30 ml/kg infuse over 60 min (2052 ml) IV .Q1H ONE Stop: 09/08/25 02:22 Last Infusion: 09/08/25 03:06 Dose: Infused Documented By: Admin: 09/08/25 01:43 Dose: 2,052 mls/hr Documented By: LUDMILA Piperacillin/Tazobactam/Dextrose (Zosyn) 3.375 gm in 50 mls @ 100 mls/hr IV X1 ONE Stop: 09/08/25 01:52 Last Infusion: 09/08/25 02:27 Dose: Infused Documented By: Admin: 09/08/25 01:42 Dose: 100 mls/hr Documented By: LUDMILA Vancomycin HCl 1,000 mg/ (Sodium Chloride) 250 mls @ 120 mls/hr IV X1 ONE Stop: 09/08/25 03:49 Last Infusion: 09/08/25 04:46 Dose: Infused Documented By: Admin: 09/08/25 02:23 Dose: 120 mls/hr Documented By: LUDMILA Vancomycin/Sodium Chloride (Vancomycin/Ns 1 Gm Ivpb) 200 mls @ 120 mls/hr IV X1 ONE Stop: 09/08/25 12:39 Last Infusion: 09/08/25 13:55 Dose: Infused Documented By: Admin: 09/08/25 12:14 Dose: 120 mls/hr Documented By: TM Piperacillin/Tazobactam/Dextrose (Zosyn) 3.375 gm in 50 mls @ 100 mls/hr IV X1 ONE; Protocol Stop: 09/08/25 13:54 Last Infusion: 09/08/25 15:55 Dose: Infused Documented By: Admin: 09/08/25 15:25 Dose: 100 mls/hr Documented By: TM See above if any. Consultations Consultation(s) initiated? 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 Please see Am physician's note for final diagnosis and disposition. Admission Request Was there a request for admission?: No Disposition Plan Disposition Plan: other (specify) (Pending CT. Please see Am physician's note for final diagnosis and disposition.) Discharge Plan Plan Patient Disposition: Admit Acute Care w/in Hospital Prescriptions/Referrals Prescriptions/Med Rec: No Action sulfamethoxazole-trimethoprim [Bactrim] 400-80 mg tablet 1 tab PO BID Qty: 20 0RF sulfamethoxazole-trimethoprim [Bactrim DS] 800-160 mg tablet 1 tab PO BID 10 Days Qty: 20 0RF ibuprofen [IBU] 800 mg tablet 800 mg PO Q8H PRN (Reason: pain) Qty: 20 0RF acetaminophen [Tylenol Extra Strength] 500 mg tablet 500 mg PO Q4H PRN (Reason: fever or pain) Qty: 30 0RF Referrals: No Primary/Family,Physician [Primary Care Provider] - In 1 week Problem List Clinical Impression: Acute sepsis, Cellulitis of left lower extremity Patient/Caregiver Discharge Instructions Print Language: Slovak Stand Alone Forms: [facility] Award Info., Patient Portal Info Letter
--- NOTE | 2025-09-08 01:23 | XR_ITS ---
Examination: CTA left lower extremity with intravenous contrast 2-D sagittal reconstructions. 2-D coronal reconstructions. 3-D reconstructions. Date and time of exam: September 08, 2025, 0341 hours INDICATION: Left leg swelling pain infection this week CTDI: vol (mGy): 6.42 DLP: (mGycm): 737 Technique: Multiple 1.25 mm axial sections of the left lower extremity post intravenous administration 100 cc [id number] no have been obtained. 2-D sagittal and coronal reconstructions have been obtained. 3-D reconstructions have been obtained. 3D postprocessing including maximum intensity projection imaging Low dose protocols were performed. One or more of the following dose reduction techniques were used; automated exposure control, adjustment of the mA and/or KV according to patient size, use of iterative reconstruction technique. Findings: Extensive edema in the subcutaneous tissues surrounding the lower extremity Fluid collection posterior left leg beginning at the level of the distal femur and extending caudad and medial to the lower leg, measuring transverse 8 cm x 3 cm, and x19 cm in length Negative for osteomyelitis or definite myositis No foreign body IMPRESSION: Extensive cellulitis involving the entire left lower extremity Large fluid collection posterior medial left leg as above, differential would include seroma, abscess, clinical correlation advised
--- NOTE | 2025-09-08 01:31 | XR_ITS ---
EXAMINATION: Left foot 2 views TECHNIQUE: AP lateral left foot 2 views Date and time: September 08, 2025, 0142 hours, comparison September 04, 2025 INDICATIONS: History foot trauma with comminuted fractures second and third metatarsals FINDINGS: Again noted comminuted fractures second and third metacarpals There remains 3 mm offset of the second metatarsal fracture and one shaft width offset of the third metatarsal fracture Digits intact IMPRESSION: Again noted comminuted fractures second and third metatarsals
[2025-09-08] MEDS: PIPER/TAZO 3.375 GM PREMIX 3.375 GM/50 ML BAG IV ×2 (01:42→15:25)
[2025-09-08] MEDS: ACETAMINOPHEN SOL 325 MG/10 ML UDC 1000 MG PO ×2 (01:42→20:26)
[2025-09-08] MEDS: SODIUM CHLORIDE 0.9% 1000 ML 2,052 ML 2052 ML IV (01:43)
[2025-09-08 02:21] LABS: Collection Type, Urine Clean Catch
[2025-09-08] MEDS: Vancomycin Inj 1,000 MG in SODIUM CHLORIDE 0.9% 250 ML 250 ML 120 MG IV (02:23)
[2025-09-08 02:24] LABS: Basophils # (Auto) 0.1 Thou/mm3 (0.0-0.2); Basophils % (Auto) 1 % (0-2.5); Eosinophils # (Auto) 0.0 Thou/mm3 (0.0-0.5); Eosinophils % (Auto) 0 % (0-10); Hematocrit 34.3 % (41.0-53.0); Hemoglobin 11.7 g/dL (13.5-16.0); Immature Granulocytes Auto 0.38 Thou/mm3 (0.00-0.00); Lymphocytes # (Auto) 0.3 Thou/mm3 (1.0-4.8); Lymphocytes % (Auto) 2 % (10-50); Mean Corpuscular HGB Conc 34.1 g/dl (31.0-37.0); Mean Corpuscular Hemoglobin 25.8 pg (25.0-35.0); Mean Corpuscular Volume 76 fL (80-100); Monocytes # (Auto) 0.9 Thou/mm3 (0.0-0.8); Monocytes % (Auto) 6 % (0-12); Neutrophils # (Auto) 12.6 Thou/mm3 (1.8-7.7); Neutrophils % (Auto) 88 % (37-80); Nucleated Red Blood Cell # 0.00 Thou/mm3 (0.00-0.00); Nucleated Red Blood Cell % 0 /100 WBC (0); Platelet Count 319 Thou/mm3 (140-440); RDW Standard Deviation 37.7 fL (35.1-43.9); Red Blood Count 4.53 Miln/mm3 (4.50-5.90); White Blood Count 14.2 Thou/mm3 (3.8-10.6)
[2025-09-08 02:26] LABS: Lactate (Lactic Acid) 3.1 mMol/L (0.4-2.0)
[2025-09-08 02:38] LABS: Amorphous Crystals,Urine Present (Absent); Bilirubin,Urine Negative (Negative); Blood,Urine 3+ (Negative); Clarity,Urine Turbid (Clear/Hazy); Color,Urine Yellow (Lt Yel-Yel); Culture Indicated,Urine Not Indicated; Glucose, Urine Negative (Negative); Hyaline Casts,Urine < 1 /hpf (0-1); Ketones,Urine 1+ (Negative); Leukocyte Esterase,Urine Negative (Negative); Nitrite,Urine Negative (Negative); PH,Urine 6.0 (5.0-7.0); Protein,Urine 1+ (Neg - Trace); RBC,Urine 7 /hpf (0-3); Specific Gravity,Urine 1.025 (1.001-1.035); Squamous Epithelial Cell,Urine 1 /hpf (0-5); Urobilinogen,Urine 2.0 mg/dL (0.0-1.0); WBC,Urine 3 /hpf (0-5)
[2025-09-08 02:44] LABS: INR 1.0 (0.9-1.3); Partial Thromboplastin Time 34.7 Seconds (22.0-36.0); Prothrombin Time 11.0 Seconds (9.0-12.2)
[2025-09-08 03:01] LABS: Sed Rate (ESR) 130 mm/hr (0-15)
[2025-09-08 03:05] LABS: Sperm,Urine Present
[2025-09-08 03:06] LABS: B-Type Natriuretic Peptide 47 pg/mL (0-100)
[2025-09-08 03:17] LABS: Alcohol, Urine Negative (Negative); Amphetamine/Methamp Scrn,U Positive (Negative); Barbiturate Screen,Urine Negative (Negative); Benzodiazepines Screen,Urine Negative (Negative); Benzoylecgonine Screen, Ur Negative (Negative); Fentanyl Screen,Urine Negative (Negative); Opiate Screen,Urine Negative (Negative); THC Screen,Urine Negative (Negative)
[2025-09-08 03:17] LABS: Acetaminophen < 2.0 mcg/mL (10.0-20.0); Alanine Aminotransferase 70 U/L (10-49); Albumin, Serum 4.1 gm/dL (3.5-5.0); Albumin/Globulin Ratio 1.3 (1.2-2.2); Alcohol, Blood Medical < 3.0 mg/dL (0-10.0); Alkaline Phosphatase 71 U/L (46-116); Anion Gap 16 (7-16); Aspartate Amino Transferase 118 U/L (0-34); BUN/Creatinine Ratio 30 Ratio (12-20); Bilirubin,Total 0.7 mg/dL (0.3-1.2); Blood Urea Nitrogen 39 mg/dL (9-23); Calcium 8.6 mg/dL (8.3-10.6); Calcium (Corrected) 8.6 mg/dL (8.5-10.1); Carbon Dioxide 21.9 mMol/L (20.0-31.0); Chloride 93 mMol/L (98-107); Creatinine (Component) 1.3 mg/dL (0.6-1.3); Estimated Creatinine Clearance 74.5 mL/min (>60); Globulin 3.2 gm/dL (2.3-3.5); Glucose 97 mg/dL (74-106); Magnesium 2.5 mg/dL (1.6-2.6); Osmolality,Calculated 272 (275-295); Phosphorous 3.5 mg/dL (2.4-5.1); Potassium 4.5 mMol/L (3.4-5.1); Procalcitonin 35.61 ng/ml (0.0-0.49); Salicylate < 3.0 mg/dL; Sodium 131 mMol/L (136-145); Total Protein 7.3 gm/dL (5.7-8.2); Troponin I 0.020 ng/mL (0.0-0.045); eGFR > 60 See Note
--- NOTE | 2025-09-08 03:25 | PC.NURSE ---
WOUND WAS CLEANED AND DRESSED
--- NOTE | 2025-09-08 04:32 | XR_ITS ---
Examination: Duplex scan of the lower extremity, unilateral left Date and time of exam: September 08, 2025, 0551 hours INDICATIONS: Left leg swelling and pain beginning 3 months ago Technique: Duplex scan of the extremity veins using B-mode/grayscale imaging and Doppler spectral analysis and color flow Attention is directed to internal echogenicity, compression and augmentation involving these veins, color flow assessment, spectral analysis Findings: Major deep venous structures in the extremity demonstrate normal course and caliber. Bandaging material prevents visualization of the left popliteal and peroneal veins There is no evidence of deep vein thrombosis. Normal color flow and spectral analysis Impression: Limited study No DVT demonstrated
[2025-09-08 05:17] LABS: Reflex Lactate? Y
--- NOTE | 2025-09-08 05:27 | PRELIM_ITS ---
CT angiogram of the pelvis and both lower extremity with intravenous contrast (axial sections with sagittal and coronal reformats) September 08, 2025 0341 hours Clinical History: Rule out deep infection. Comparison: None available at the time of this report. Findings: The urinary bladder is within normal limits. The prostate is unremarkable. There is no free fluid or free air. No evidence of significant lymphadenopathy. The distal abdominal aorta and IVC are unremarkable. The osseous structures appear unremarkable. The common iliac, external iliac and internal iliac arteries are patent. The common femoral, superficial femoral, profunda femoral and popliteal veins are normal in course and caliber. The anterior tibial, posterior tibial, peroneal and dorsalis pedis arteries are patent. The appendix is within normal limits. Enlarged left pelvic and left groin lymph nodes, probably reactive. Left lower extremity subcutaneous fat edema associated with skin thickening. Fluid collection in the subcutaneous fat of the posterior left leg measures 7.9 x 2.9 x 18.6 cm. Impression: 1. Fluid collection in the subcutaneous fat of the posterior left leg, differential close includes developing abscess and seroma. 2. Subcutaneous fat stranding associated with skin thickening is suspicious for cellulitis. 3. Enlarged left pelvic and left groin lymph nodes, probably reactive. Report Electronically Signed By: Myles Zladivar 09/08/2025 5:27:01 AM [EST]
--- NOTE | 2025-09-08 05:31 | PD.EDADDENDU ---
Emergency Room Addendum <Elysia Coreas - Last Filed: 09/08/25 06:00> Addendum Narrative: 0500: Care assumed from Dr. Coffman (emergency physician). Past medical, surgical, social and family history reviewed. Vitals and home medications reviewed. Results and treatment plan discussed. I will assume the care of the patient at this time and will follow the patient, pending LE CTA and final disposition. The following addendum documentation note is intended to reflect any pending information, findings, or radiology results not included in the patient?s initial chart by the previous shift scribe. RADIOLOGY Lower extremity CTA: CT angiogram of the pelvis and both lower extremity with intravenous contrast (axial sections with sagittal and coronal reformats) September 08, 2025 0341 hours Clinical History: Rule out deep infection. Comparison: None available at the time of this report. Findings: The urinary bladder is within normal limits. The prostate is unremarkable. There is no free fluid or free air. No evidence of significant lymphadenopathy. The distal abdominal aorta and IVC are unremarkable. The osseous structures appear unremarkable. The common iliac, external iliac and internal iliac arteries are patent. The common femoral, superficial femoral, profunda femoral and popliteal veins are normal in course and caliber. The anterior tibial, posterior tibial, peroneal and dorsalis pedis arteries are patent. The appendix is within normal limits. Enlarged left pelvic and left groin lymph nodes, probably reactive. Left lower extremity subcutaneous fat edema associated with skin thickening. Fluid collection in the subcutaneous fat of the posterior left leg measures 7.9 x 2.9 x 18.6 cm. Impression: 1. Fluid collection in the subcutaneous fat of the posterior left leg, differential close includes developing abscess and seroma. 2. Subcutaneous fat stranding associated with skin thickening is suspicious for cellulitis. 3. Enlarged left pelvic and left groin lymph nodes, probably reactive. 0542: Discussed with Dr. Fontenot, our hospitalist, for admission. Reviewed the patient?s HPI, PMHx, lab and/or radiology results. Discussed treatment plan. Patient accepted for admission by Dr. Fontenot. <Cyndy Ontiveros - Last Filed: 09/08/25 18:24> Addendum Narrative: 0500: Care assumed from Dr. Coffman. Past medical, surgical, social and family history reviewed. Vitals and home medications reviewed. Results and treatment plan discussed. I will assume the care of the patient at this time and will follow the patient, pending LE CTA and final disposition. The following addendum documentation note is intended to reflect any pending information, findings, or radiology results not included in the patient?s initial chart by the previous shift scribe. RADIOLOGY Lower extremity CTA: CT angiogram of the pelvis and both lower extremity with intravenous contrast (axial sections with sagittal and coronal reformats) September 08, 2025 0341 hours Clinical History: Rule out deep infection. Comparison: None available at the time of this report. Findings: The urinary bladder is within normal limits. The prostate is unremarkable. There is no free fluid or free air. No evidence of significant lymphadenopathy. The distal abdominal aorta and IVC are unremarkable. The osseous structures appear unremarkable. The common iliac, external iliac and internal iliac arteries are patent. The common femoral, superficial femoral, profunda femoral and popliteal veins are normal in course and caliber. The anterior tibial, posterior tibial, peroneal and dorsalis pedis arteries are patent. The appendix is within normal limits. Enlarged left pelvic and left groin lymph nodes, probably reactive. Left lower extremity subcutaneous fat edema associated with skin thickening. Fluid collection in the subcutaneous fat of the posterior left leg measures 7.9 x 2.9 x 18.6 cm. Impression: 1. Fluid collection in the subcutaneous fat of the posterior left leg, differential close includes developing abscess and seroma. 2. Subcutaneous fat stranding associated with skin thickening is suspicious for cellulitis. 3. Enlarged left pelvic and left groin lymph nodes, probably reactive. 0546: I spoke with hospitalist Dr. Fontenot. Discussed patients PMHx, HPI, ED course, exam findings, labs, and radiology results. The hospitalist agree to accept the patient for admission. Hospitalist team have called back and are requesting we consult with surgeon on-call prior to accepting the patient for admission. 0757: I spoke with Surgeon Dr. Bellamy. Discussed patients PMHx, HPI, ED course, exam findings, labs, and radiology results. States he will come evaluate the patient in the ED. 0820: I spoke with hospitalist team A for admission. State they are pending Dr. Bellamy to evaluate. 1302: Surgeon Dr. Bellamy has evaluated the patient in the ED. He recommends transferring for higher level of care and a facility with vascular surgery. 1335: Our transfer nurse and made aware of plan to transfer. Made aware by our transfer nurse that [facility] is reviewing the case. 1800: Care signed out to Dr. Benjamin pending transfer.
[2025-09-08 05:53] LABS: Lactic Acid, 3 HR 2.7 mMol/L (0.4-2.0)
--- NOTE | 2025-09-08 08:13 | PC.SS ---
SS attempted to complete initial assessment, however patient asked for SS to return and did not want to answer to SS question.
[2025-09-08] MEDS: VANCOMYCIN/NS 1 GM IVPB 200 ML IV (12:14)
--- NOTE | 2025-09-08 13:52 | PC.CC ---
Received call from Dr. Shannon, he is requesting transfer for ortho at this time.
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
--- NOTE | 2025-09-08 15:55 | PC.NURSE ---
PT STATED HE FELT HIS BS WAS LOW, THIS RN CHECKED IT, IT WAS 142, THIS RN ASKED PT IF HE IS DIABETIC, PT SAID NO. DSG APPLIED TO WOUND, WATER AND JUICE GIVEN TO PT, CLEARED BY MD KRISHNAN WHO SAID PT CAN HAVE FLUIDS.
--- NOTE | 2025-09-08 18:43 | PD.EDADDENDU ---
Emergency Room Addendum <Amie Toth - Last Filed: 09/08/25 19:14> Addendum Narrative: 1800: Care assumed from Dr. Shannon, the previous shift emergency physician. Past medical, surgical, social and family history reviewed. Vitals and home medications reviewed. Results and treatment plan discussed. I will assume the care of the patient at this time and will follow the patient. Please refer to the emergency department record for history and examination from initial visit. <Jose De Jesus Benjamin DO - Last Filed: 09/08/25 19:53> Addendum Narrative: 1800: Care assumed from Dr. Shannon, the previous shift emergency physician. Past medical, surgical, social and family history reviewed. Vitals and home medications reviewed. Results and treatment plan discussed. I will assume the care of the patient at this time and will follow the patient. Please refer to the emergency department record for history and examination from initial visit. I spoke to [facility] at approximately 7:30 PM and presented the case to them. I am awaiting to hear back.
--- NOTE | 2025-09-08 18:51 | PC.CC ---
Addendum entered by Maryse Toth RN 09/08/25 18:56: Transfer delayed due to multiple stat transfers in the ED. Original Note: Transfer requested, clinical sent to [facility]
--- NOTE | 2025-09-08 18:52 | PC.NURSE ---
WENT IN PTS ROOM, PT POURED URINE FROM URINAL INTO CUP AT BEDSIDE AND STATED HE DRANK IT BECAUSE HE WAS THIRSTY. PT HAS BEEN GIVEN MULTIPLE EVANS AND JUICES PRIOR TO THIS
--- NOTE | 2025-09-08 19:24 | PC.CC ---
Dr. Benjamin spoke with [facility]. Labs and images pushed over at this time. At 1902 sent clinicals to [facility]. Transfer packet with 1 CD handed to charge nurse, report given to charge nurse
--- NOTE | 2025-09-08 20:50 | PC.NURSE ---
Per Jacquie they are declining, Orthopedist Guy stated this would be a general surgeon case and not ortho. Our general surgeon has reviewed the case and JACQUIE made aware. MD Mike made aware and will talk to Surgeon Josesito. PEr MD Mike, [facility] is declining at the moment for the same context, states the ortho states its a general surgeon case. The transfer stated they consulted with their general surgeon and stated area was superficial and could be done by our general surgeon.
--- NOTE | 2025-09-08 21:15 | PD.EDADDENDU ---
Emergency Room Addendum Addendum Narrative: I spoke with our general surgeon, Dr. Bellamy who is already seen and evaluated this patient. He feels very uncomfortable doing surgery on this patient due to the fact that this is a 19 cm abscess that travels down the leg and across the popliteal fossa. He feels that the patient needs an orthopedic surgeon. I will reestablish contact with [facility] to attempt to arrange transfer. Antibiotics will be updated and continued.
--- NOTE | 2025-09-08 21:48 | PC.NURSE ---
2145, ACCEPTED TO [facility] BY , ED TO ED, REPORT #[id number], SPOKE TO SLAVA.
--- NOTE | 2025-09-08 21:58 | PD.EDADDENDU ---
Emergency Room Addendum Addendum Narrative: I rediscussed this case with the transfer center at [facility]. I gave them Dr. Bellamy's phone number because they wanted a peer to peer discussion regarding this case. [facility] called us back and they now are excepting this patient in transfer. Patient at this time has stable vital signs. He was notified of the transfer and is in agreement. He was updated on his Zosyn which was 4.5 g IV.
--- NOTE | 2025-09-08 22:00 | EDNOTE_ITS ---
Emergency Room Addendum Addendum Narrative: This [facility] general surgeon is Dr. Barber.
--- NOTE | 2025-09-08 22:00 | PD.EDADDENDU ---
Emergency Room Addendum Addendum Narrative: This [facility] general surgeon is Dr. Barber.
[2025-09-08] MEDS: PIPER/TAZO INJ 4.5 GM in SODIUM CHLORIDE 0.9% (POP) 100 ML IV (22:10)
== END 2025-09-08 23:33 | disposition short-term general hospital (02) ==
PROVIDERS: Emergency Medicine; Emergency Provider Emergency Medicine
DX: A41.9 Sepsis, unspecified organism (principal); L03.116 Cellulitis of left lower limb; L02.416 Cutaneous abscess of left lower limb; R59.1 Generalized enlarged lymph nodes; I47.10 Supraventricular tachycardia, unspecified; Z75.1 Person awaiting admission to adequate facility elsewhere
CPT/HCPCS: 36415; 36600; 73620; 73706; 80053; 80307; 80320; 80329; 81001; 82803; 83605; 83735; 83880; 84100; 84145; 84484; 85025; 85610; 85652; 85730; 87040; 87070; 87075; 87077; 87186; 87205; 93005; 93971; 96361; 96365; 96366; 99284; A4649; J2543; J3373; J3490; J7030; J7050; Q9967; A9270; G0480